=== PATIENT | male | born 1935 | race Caucasian/White ===

== ENCOUNTER 2017-02-24 08:35 | Day surgery (SDC) | payer MEDICARE ==
[~2017-02-24 08:35] MED LIST: CEFAZOLIN SODIUM 2 GRAM PREMIX 100 ML IV ONE; IV START KIT ONE; LACTATED RINGERS 1,000 ML ONE
[2017-02-24] MEDS ORDERED: CEFAZOLIN SODIUM 2 GRAM PREMIX 100 ML IV PRN (08:45)
[2017-02-24] MEDS ORDERED: PROPOFOL 20 ML IV ONE (10:28)
[2017-02-24] MEDS ORDERED: FENTANYL 250 MCG/5 ML AMP ONE (10:29)
[2017-02-24] MEDS ORDERED: LIDOCAINE 2% (MULTI DOSE) 10 ML VIAL ONE (10:29)
[2017-02-24] MEDS ORDERED: MIDAZOLAM HCL 1 MG/ML 2ML VIAL ONE (10:29)
[2017-02-24] MEDS ORDERED: BUPIVACAINE 0.5% (PRES FREE) 30 ML VIAL ONE (11:30)
[2017-02-24] MEDS ORDERED: SODIUM CHLORIDE 0.9% FLUSH 10 ML ONE (11:30)
[2017-02-24] MEDS ORDERED: CEFAZOLIN SODIUM 1,000 MG VIAL ONE (11:30)
[2017-02-24] MEDS ORDERED: ATROPINE SULFATE 0.4 MG/1 ML VIAL IV PRN (12:01)
[2017-02-24] MEDS ORDERED: LABETALOL HCL 5 MG/ML 20ML VIAL IV PRN (12:01)
[2017-02-24] MEDS ORDERED: FENTANYL 100 MCG/2 ML VIAL IV PRN (12:01)
[2017-02-24] MEDS ORDERED: NALOXONE HCL 0.4 MG/ML VIAL IV PRN (12:01)
[2017-02-24] MEDS ORDERED: HYDRALAZINE HCL 20 MG/1 ML VIAL IV PRN (12:01)
[2017-02-24] MEDS ORDERED: ONDANSETRON 4 MG/2ML 2 ML VIAL IV PRN ×2 (12:01→13:27)
[2017-02-24] MEDS ORDERED: PROMETHAZINE HCL 25 MG/ML VIAL IM PRN (12:01)
[2017-02-24] MEDS ORDERED: HYDROMORPHONE HCL 0.5 MG/0.5 ML SYRINGE IV PRN (12:01)
[2017-02-24] MEDS ORDERED: LACTATED RINGERS 1,000 ML IV SCH (12:15)
[2017-02-24] MEDS ORDERED: ONDANSETRON 4 MG/2ML 2 ML VIAL ONE ×2 (12:34→13:49)
[2017-02-24] MEDS ORDERED: LACTATED RINGERS 1,000 ML ONE (13:05)
[2017-02-24] MEDS ORDERED: HYDROMORPHONE HCL 2 MG TABLET PO PRN (13:27)
[2017-02-24] MEDS ORDERED: KETOROLAC TROMETHAMINE 30 MG/ML 1 ML VIAL IV PRN (13:27)
[2017-02-24] MEDS ORDERED: MORPHINE SULFATE 2 MG/ML SYRINGE IV PRN (13:27)
[2017-02-24] MEDS ORDERED: KETOROLAC TROMETHAMINE 15 MG/ML VIAL ONE (13:46)
[2017-02-24] MEDS ORDERED: DIPHENHYDRAMINE HCL 50 MG/1 ML VIAL ONE (13:48)
[2017-02-24] MEDS ORDERED: DEXAMETHASONE SOD PHOS 4 MG/1 ML VIAL ONE ×2 (13:48)
--- NOTE | 2017-02-24 18:03 | OP ---
ADILENE LIU [id number] DATE OF OPERATION: February 24, 2017 PREOPERATIVE DIAGNOSIS: Right inguinal hernia. POSTOPERATIVE DIAGNOSIS: Right inguinal hernia. PROCEDURE: RIGHT INGUINAL HERNIA REPAIR WITH MESH PLUG AND PATCH. SURGEON: Mickey Alexandra M.D. STOCK CLERK: Shamika Cabrales ANESTHESIA: General anesthesia by Mele Cifuentes C.R.N.A., LMA general. INDICATIONS: This is an 82-year-old male who presents for elective repair of a right inguinal hernia. DESCRIPTION: With informed consent he was taken to the operating room. He was laid supine on the operating room table. General anesthesia was administered. The right groin was prepped and draped in the usual fashion. Local anesthetic was administered in the skin and subcutaneous tissue. Incision was made. Electrocautery was used to divide the subcutaneous fat and subcutaneous veins. The Yifan's fascia was opened with electrocautery. The external oblique was opened with a knife and Metzenbaum scissors in a fiber splitting technique. Cord structures were encircled at the level of the pubic tubercle with a Arin drain. There was an indirect hernia sac present. This was dissected free from the cord structures to the floor. I opened the sac. It did contain some thickened preperitoneal fat. It was not clear if the colon was directly adjacent like a sliding hernia. I was able to close it with a pursestring of some #2-0 Vicryl. The actual defect in the abdominal wall was fairly small. I put a medium mesh plug into the that area and secured that in multiple locations with a #2-0 Vicryl. A flat piece of mesh was then placed across the floor of the canal. The medial aspect overlapped the pubic tubercle. A slit was cut laterally, and that was secured with some #2-0 Vicryl. This was placed up underneath the external oblique. It did appear that we had some tethering of the ilioinguinal nerve which was following the cord structures but going through the mesh. I did decide to lyse that. The wound was irrigated. We appeared to have adequate hemostasis. External oblique is reapproximated with some #2-0 Vicryl. Yifan's fascia was reapproximated with #3-0 Vicryl. Skin was closed with a running subcuticular #4-0 Monocryl. Mastisol and SteriStrips were placed. Sterile dressings were applied. He tolerated the procedure and was taken to the recovery room in stable condition. Note was made the needle, instrument and lap counts were reported as correct at time of closure. Cc: David Hauser M.D.
== END 2017-02-24 14:59 | disposition home or self-care (01) ==
LOC: SDC 08:35
PROVIDERS: ATTEND Surgery
PROC: 0YU50JZ Supplement Right Inguinal Region with Synthetic Substitute, Open Approach (ICD-10-PCS; principal; 2017-02-24)
DX: K40.90 Unilateral inguinal hernia, without obstruction or gangrene, not specified as recurrent (principal); C61 Malignant neoplasm of prostate; Z86.010 Personal history of colon polyps; I10 Essential (primary) hypertension; R01.1 Cardiac murmur, unspecified; E78.5 Hyperlipidemia, unspecified; K44.9 Diaphragmatic hernia without obstruction or gangrene; M19.90 Unspecified osteoarthritis, unspecified site; M88.8 Osteitis deformans of other bones; Z79.82 Long term (current) use of aspirin; Z88.8 Allergy status to other drugs, medicaments and biological substances